=== PATIENT | female | born 1990 | race African-American/Black ===

== ENCOUNTER 2018-01-05 16:29 | Inpatient (IN) | payer OTHER ==
[2018-01-05 18:16] VITALS: BMI 20.5
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
[2018-01-05] MEDS ORDERED: ACETAMINOPHEN 325 MG TABLET (FP) PO PRN (20:41)
[2018-01-05] MEDS ORDERED: P-EPHED 60MG/TRIPROLIDI 2.5MG TABLET PO PRN (20:41)
[2018-01-05] MEDS ORDERED: MAGNESIUM HYDROX 2400MG/30ML ORAL SUSPENSION 30 ML CUP PO PRN (20:41)
[2018-01-05] MEDS ORDERED: chlordiazePOXIDE HCL 25 MG CAPSULE PO PRN (20:41)
[2018-01-05] MEDS ORDERED: MAGNESIUM CITRATE 300 ML BOTTLE PO PRN (20:41)
[2018-01-05] MEDS ORDERED: guaiFENesin/D-METHORPHAN HB 10 ML UNIT-DOSE CUPS PO PRN (20:41)
[2018-01-05] MEDS ORDERED: hydrOXYzine PAMOATE 50 MG CAPSULE (FP) PO PRN (20:41)
[2018-01-05] MEDS ORDERED: MAG HYDROX/AL HYDROX/SIMETH 30 ML UNIT-DOSE CUP PO PRN (20:41)
[2018-01-05] MEDS ORDERED: LOPERAMIDE HCL 2 MG CAPSULE PO PRN (20:41)
[2018-01-05] MEDS ORDERED: MENTHOL/PHENOL 1 EACH UD MM PRN (20:41)
[2018-01-05] MEDS ORDERED: IBUPROFEN 400 MG TABLET (FP) PO PRN (20:41)
[2018-01-05] MEDS: chlordiazePOXIDE HCL 25 MG CAPSULE PO SCH (22:57)
[2018-01-05] MEDS: THIAMINE HCL 100 MG TABLET (FP) PO SCH (22:57)
[2018-01-05] MEDS: MELATONIN 5 MG TABLETS PO PRN (22:58)
[2018-01-06 01:45] LABS: URINE APPEARANCE CLOUDY; URINE BILIRUBIN NEGATIVE (<2.0 mg/dL); URINE BLOOD NEGATIVE (NEGATIVE); URINE COLOR YELLOW; URINE GLUCOSE (UA) NEGATIVE (NEGATIVE); URINE KETONE NEGATIVE (NEGATIVE); URINE LEUK ESTERASE NEGATIVE (NEGATIVE); URINE NITRITE NEGATIVE (NEGATIVE); URINE PROTEIN NEGATIVE (NEGATIVE); URINE UROBILINOGEN NEGATIVE mg/dL (0.2-1.0)
[2018-01-06] MEDS: chlordiazePOXIDE HCL 25 MG CAPSULE PO SCH ×4 (05:53→22:29)
--- NOTE | 2018-01-06 10:06 | EKG ---
Test Reason : Blood Pressure : / mmHG Vent. Rate : 082 BPM Atrial Rate : 082 BPM P-R Int : 108 ms QRS Dur : 078 ms QT Int : 386 ms P-R-T Axes : 058 053 028 degrees QTc Int : 450 ms SINUS RHYTHM WITH SHORT NC OTHERWISE NORMAL ECG NO PREVIOUS ECGS AVAILABLE Confirmed by JAVI REID MD ([id number]) on 01/06/2018 10:06:00 AM Referred By: Confirmed By:JAVI REID MD
[2018-01-06] MEDS: PRENATAL VITAMINS W/ FOLIC ACID TABLET (FP) PO SCH (10:09)
[2018-01-06] MEDS: NICOTINE 14 MG/24 HOURS TOPICAL PATCH TD SCH (10:10)
[2018-01-06 10:21] LABS: HEMATOCRIT 34.9 % (32.4-45.2); HEMOGLOBIN 11.8 GM/dL (10.7-15.3); MCH 32.9 pg (25.7-33.7); MCHC 33.7 g/dl (32.0-36.0); MEAN CELL VOLUME 97.6 fl (80-96); MEAN PLT VOLUME 8.1 fl (7.5-11.1); PLATELET COUNT 304 K/MM3 (134-434); RBC 3.57 M/mm3 (3.60-5.2); WHITE BLOOD COUNT 6.5 K/mm3 (4.0-10.0)
[2018-01-06 10:32] LABS: CHLORIDE 107 mmol/L (98-107); SODIUM 142 mmol/L (136-145)
--- NOTE | 2018-01-06 10:32 | PN ---
S CIWA - CIWA Score Nausea/Vomitin Muscle Tremors: 2 Anxiety: 2 Agitation: 2 Paroxysmal Sweats: 3 Orientation: 0-Oriented Tacttile Disturbances: 1-Very Mild Itch/Numbness Auditory Disturbances: 0-None Visual Disturbances: 0-None Headache: 0-None Present CIWA-Ar Total Score: 12 S Progress Note (SOAP) Subjective: interrupted sleep, sweats Objective: 01/06/18 10:30 Vital Signs Temperature 97.5 F L 01/06/18 06:00 Pulse Rate 72 01/06/18 06:00 Respiratory Rate 16 01/06/18 06:00 Blood Pressure 106/75 01/06/18 06:00 O2 Sat by Pulse Oximetry (%) Laboratory Tests 01/06/18 01/06/18 00:34 08:00 WBC 6.5 RBC 3.57 L Hgb 11.8 Hct 34.9 MCV 97.6 H MCH 32.9 MCHC 33.7 RDW 13.0 Plt Count 304 MPV 8.1 Urine Color Yellow Urine Appearance Cloudy Urine pH 8.0 Ur Specific [place] 1.019 Urine Protein Negative Urine Glucose (UA) Negative Urine Ketones Negative Urine Blood Negative Urine Nitrite Negative Urine Bilirubin Negative Urine Urobilinogen Negative Ur Leukocyte Esterase Negative pt aox3 in nad ambulating well, Assessment: 01/06/18 10:31 withdrawal sx;s Plan: cont. detox increase fluids
[2018-01-06 10:45] LABS: ALBUMIN 2.8 g/dl (3.4-5.0); ALK PHOS 64 U/L (45-117); ANION GAP 8 (8-16); BILIRUBIN,TOTAL 0.2 mg/dL (0.2-1.0); BLOOD UREA NITROGEN 13 mg/dL (7-18); CALCIUM 8.3 mg/dL (8.5-10.1); CO2 27 mmol/L (21-32); CREATININE 0.7 mg/dL (0.55-1.02); GLUCOSE,RANDOM 94 mg/dL (74-106); SGOT/AST 16 U/L (15-37); SGPT/ALT 15 U/L (12-78); TOT PROT 5.7 g/dl (6.4-8.2)
[2018-01-06] MEDS: NICOTINE POLACRILEX 2 MG GUM BUC PRN ×2 (13:16→18:38)
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
[2018-01-06] MEDS: THIAMINE HCL 100 MG TABLET (FP) PO SCH (22:28)
[2018-01-06] MEDS: TOLNAFTATE 1% CREAM 15 GM TUBE TP SCH (22:28)
[2018-01-06] MEDS: MIRTAZAPINE 15 MG TABLET (FP) PO SCH (22:29)
[2018-01-06] MEDS: MELATONIN 5 MG TABLETS PO PRN (22:30)
[2018-01-07] MEDS: chlordiazePOXIDE HCL 25 MG CAPSULE PO SCH ×3 (06:10→17:35)
[2018-01-07] MEDS: PRENATAL VITAMINS W/ FOLIC ACID TABLET (FP) PO SCH (10:58)
[2018-01-07] MEDS: NICOTINE 14 MG/24 HOURS TOPICAL PATCH TD SCH (10:59)
[2018-01-07] MEDS: TOLNAFTATE 1% CREAM 15 GM TUBE TP SCH ×2 (10:59→22:16)
--- NOTE | 2018-01-07 15:24 | PN ---
S CIWA - CIWA Score Nausea/Vomitin Muscle Tremors: 3 Anxiety: 2 Agitation: 2 Paroxysmal Sweats: 1-Minimal Palms Moist Orientation: 0-Oriented Tacttile Disturbances: 1-Very Mild Itch/Numbness Auditory Disturbances: 1-Very Mild Visual Disturbances: 0-None Headache: 2-Mild CIWA-Ar Total Score: 15 S Progress Note (SOAP) Subjective: ALERT,IRRITABLE,ANXIOUS,INTERRUPTED SLEEP,TREMOR Objective: 01/07/18 15:22 Vital Signs Temperature 97.2 F L 01/07/18 15:16 Pulse Rate 98 H 01/07/18 15:16 Respiratory Rate 20 01/07/18 15:16 Blood Pressure 129/73 01/07/18 15:16 O2 Sat by Pulse Oximetry (%) Laboratory Last Values WBC 6.5 K/mm3 (4.0-10.0) 01/06/18 08:00 RBC 3.57 M/mm3 (3.60-5.2) L 01/06/18 08:00 Hgb 11.8 GM/dL (10.7-15.3) 01/06/18 08:00 Hct 34.9 % (32.4-45.2) 01/06/18 08:00 MCV 97.6 fl (80-96) H 01/06/18 08:00 MCH 32.9 pg (25.7-33.7) 01/06/18 08:00 MCHC 33.7 g/dl (32.0-36.0) 01/06/18 08:00 RDW 13.0 % (11.6-15.6) 01/06/18 08:00 Plt Count 304 K/MM3 (134-434) 01/06/18 08:00 MPV 8.1 fl (7.5-11.1) 01/06/18 08:00 Sodium 142 mmol/L (136-145) 01/06/18 08:00 Potassium 4.0 mmol/L (3.5-5.1) 01/06/18 08:00 Chloride 107 mmol/L (98-107) 01/06/18 08:00 Carbon Dioxide 27 mmol/L (21-32) 01/06/18 08:00 Anion Gap 8 (8-16) 01/06/18 08:00 BUN 13 mg/dL (7-18) 01/06/18 08:00 Creatinine 0.7 mg/dL (0.55-1.02) 01/06/18 08:00 Creat Clearance w eGFR > 60 (>60) 01/06/18 08:00 Random Glucose 94 mg/dL (74-106) 01/06/18 08:00 Calcium 8.3 mg/dL (8.5-10.1) L 01/06/18 08:00 Total Bilirubin 0.2 mg/dL (0.2-1.0) 01/06/18 08:00 AST 16 U/L (15-37) 01/06/18 08:00 ALT 15 U/L (12-78) 01/06/18 08:00 Alkaline Phosphatase 64 U/L (45-117) 01/06/18 08:00 Total Protein 5.7 g/dl (6.4-8.2) L 01/06/18 08:00 Albumin 2.8 g/dl (3.4-5.0) L 01/06/18 08:00 Urine Color Yellow 01/06/18 00:34 Urine Appearance Cloudy 01/06/18 00:34 Urine pH 8.0 (5.0-8.0) 01/06/18 00:34 Ur Specific [place] 1.019 (1.001-1.035) 01/06/18 00:34 Urine Protein Negative (NEGATIVE) 01/06/18 00:34 Urine Glucose (UA) Negative (NEGATIVE) 01/06/18 00:34 Urine Ketones Negative (NEGATIVE) 01/06/18 00:34 Urine Blood Negative (NEGATIVE) 01/06/18 00:34 Urine Nitrite Negative (NEGATIVE) 01/06/18 00:34 Urine Bilirubin Negative (<2.0 mg/dL) 01/06/18 00:34 Urine Urobilinogen Negative mg/dL (0.2-1.0) 01/06/18 00:34 Ur Leukocyte Esterase Negative (NEGATIVE) 01/06/18 00:34 RPR Titer Nonreactive (NONREACTIVE) 01/06/18 08:00 Assessment: 01/07/18 15:23 WITHDRAWAL SYMPTOM Plan: CONTINUE DETOX
[2018-01-07] MEDS: NICOTINE POLACRILEX 2 MG GUM BUC PRN ×2 (17:35→22:17)
[2018-01-07] MEDS: chlordiazePOXIDE 5 MG CAPSULE PO SCH (22:17)
[2018-01-07] MEDS: MELATONIN 5 MG TABLETS PO PRN (22:17)
[2018-01-07] MEDS: MIRTAZAPINE 15 MG TABLET (FP) PO SCH (22:17)
[2018-01-07] MEDS: THIAMINE HCL 100 MG TABLET (FP) PO SCH (22:17)
[2018-01-08] MEDS: chlordiazePOXIDE 5 MG CAPSULE PO SCH ×3 (06:04→17:11)
[2018-01-08] MEDS: NICOTINE POLACRILEX 2 MG GUM BUC PRN ×3 (06:13→14:12)
[2018-01-08] MEDS: PRENATAL VITAMINS W/ FOLIC ACID TABLET (FP) PO SCH (10:09)
[2018-01-08] MEDS: TOLNAFTATE 1% CREAM 15 GM TUBE TP SCH (10:09)
[2018-01-08] MEDS: NICOTINE 14 MG/24 HOURS TOPICAL PATCH TD SCH (10:09)
--- NOTE | 2018-01-08 10:22 | PN ---
BHS Progress Note (SOAP) Subjective: feeling better no tremor less sweat tolerated food and fluid well Objective: 01/08/18 10:21 Vital Signs Temperature 97.7 F 01/08/18 07:37 Pulse Rate 67 01/08/18 07:37 Respiratory Rate 18 01/08/18 07:37 Blood Pressure 119/54 01/08/18 07:37 O2 Sat by Pulse Oximetry (%) Laboratory Last Values WBC 6.5 K/mm3 (4.0-10.0) 01/06/18 08:00 RBC 3.57 M/mm3 (3.60-5.2) L 01/06/18 08:00 Hgb 11.8 GM/dL (10.7-15.3) 01/06/18 08:00 Hct 34.9 % (32.4-45.2) 01/06/18 08:00 MCV 97.6 fl (80-96) H 01/06/18 08:00 MCH 32.9 pg (25.7-33.7) 01/06/18 08:00 MCHC 33.7 g/dl (32.0-36.0) 01/06/18 08:00 RDW 13.0 % (11.6-15.6) 01/06/18 08:00 Plt Count 304 K/MM3 (134-434) 01/06/18 08:00 MPV 8.1 fl (7.5-11.1) 01/06/18 08:00 Sodium 142 mmol/L (136-145) 01/06/18 08:00 Potassium 4.0 mmol/L (3.5-5.1) 01/06/18 08:00 Chloride 107 mmol/L (98-107) 01/06/18 08:00 Carbon Dioxide 27 mmol/L (21-32) 01/06/18 08:00 Anion Gap 8 (8-16) 01/06/18 08:00 BUN 13 mg/dL (7-18) 01/06/18 08:00 Creatinine 0.7 mg/dL (0.55-1.02) 01/06/18 08:00 Creat Clearance w eGFR > 60 (>60) 01/06/18 08:00 Random Glucose 94 mg/dL (74-106) 01/06/18 08:00 Calcium 8.3 mg/dL (8.5-10.1) L 01/06/18 08:00 Total Bilirubin 0.2 mg/dL (0.2-1.0) 01/06/18 08:00 AST 16 U/L (15-37) 01/06/18 08:00 ALT 15 U/L (12-78) 01/06/18 08:00 Alkaline Phosphatase 64 U/L (45-117) 01/06/18 08:00 Total Protein 5.7 g/dl (6.4-8.2) L 01/06/18 08:00 Albumin 2.8 g/dl (3.4-5.0) L 01/06/18 08:00 Urine Color Yellow 01/06/18 00:34 Urine Appearance Cloudy 01/06/18 00:34 Urine pH 8.0 (5.0-8.0) 01/06/18 00:34 Ur Specific [place] 1.019 (1.001-1.035) 01/06/18 00:34 Urine Protein Negative (NEGATIVE) 01/06/18 00:34 Urine Glucose (UA) Negative (NEGATIVE) 01/06/18 00:34 Urine Ketones Negative (NEGATIVE) 01/06/18 00:34 Urine Blood Negative (NEGATIVE) 01/06/18 00:34 Urine Nitrite Negative (NEGATIVE) 01/06/18 00:34 Urine Bilirubin Negative (<2.0 mg/dL) 01/06/18 00:34 Urine Urobilinogen Negative mg/dL (0.2-1.0) 01/06/18 00:34 Ur Leukocyte Esterase Negative (NEGATIVE) 01/06/18 00:34 RPR Titer Nonreactive (NONREACTIVE) 01/06/18 08:00 lab noted Assessment: 01/08/18 10:22 mild withdrawal sx Plan: medically supervised detox
[2018-01-08] MEDS: THIAMINE HCL 100 MG TABLET (FP) PO SCH (22:27)
[2018-01-08] MEDS: MELATONIN 5 MG TABLETS PO PRN (22:27)
[2018-01-08] MEDS: MIRTAZAPINE 15 MG TABLET (FP) PO SCH (22:27)
[2018-01-08] MEDS: chlordiazePOXIDE HCL 10 MG CAPSULE PO SCH (22:27)
[2018-01-09] MEDS: chlordiazePOXIDE HCL 10 MG CAPSULE PO SCH ×2 (05:27→11:58)
--- NOTE | 2018-01-09 08:41 | DS ---
[facility] Detox Discharge Summary Admission Date: 01/05/18 Discharge Date: 01/09/18 - History Present History: Alcohol Dependence, Sedative Dependence Additional Comments: patient is alert oriented x 3 completed alcohol and benzo detox regimen patient tolerated the regimen well denies withdrawal sx denies dee wants to go to [facility] as aftercare program patient aware of the complications of alcohol drinking and benzo misuse - Physical Exam Results Vital Signs: Vital Signs Temperature 98.1 F 01/09/18 06:00 Pulse Rate 77 01/09/18 06:00 Respiratory Rate 16 01/09/18 06:00 Blood Pressure 109/55 01/09/18 06:00 O2 Sat by Pulse Oximetry (%) Pertinent Admission Physical Exam Findings: withdrawal sx Vital Signs Temperature 98.1 F 01/09/18 06:00 Pulse Rate 77 01/09/18 06:00 Respiratory Rate 16 01/09/18 06:00 Blood Pressure 109/55 01/09/18 06:00 O2 Sat by Pulse Oximetry (%) Laboratory Last Values WBC 6.5 K/mm3 (4.0-10.0) 01/06/18 08:00 RBC 3.57 M/mm3 (3.60-5.2) L 01/06/18 08:00 Hgb 11.8 GM/dL (10.7-15.3) 01/06/18 08:00 Hct 34.9 % (32.4-45.2) 01/06/18 08:00 MCV 97.6 fl (80-96) H 01/06/18 08:00 MCH 32.9 pg (25.7-33.7) 01/06/18 08:00 MCHC 33.7 g/dl (32.0-36.0) 01/06/18 08:00 RDW 13.0 % (11.6-15.6) 01/06/18 08:00 Plt Count 304 K/MM3 (134-434) 01/06/18 08:00 MPV 8.1 fl (7.5-11.1) 01/06/18 08:00 Sodium 142 mmol/L (136-145) 01/06/18 08:00 Potassium 4.0 mmol/L (3.5-5.1) 01/06/18 08:00 Chloride 107 mmol/L (98-107) 01/06/18 08:00 Carbon Dioxide 27 mmol/L (21-32) 01/06/18 08:00 Anion Gap 8 (8-16) 01/06/18 08:00 BUN 13 mg/dL (7-18) 01/06/18 08:00 Creatinine 0.7 mg/dL (0.55-1.02) 01/06/18 08:00 Creat Clearance w eGFR > 60 (>60) 01/06/18 08:00 Random Glucose 94 mg/dL (74-106) 01/06/18 08:00 Calcium 8.3 mg/dL (8.5-10.1) L 01/06/18 08:00 Total Bilirubin 0.2 mg/dL (0.2-1.0) 01/06/18 08:00 AST 16 U/L (15-37) 01/06/18 08:00 ALT 15 U/L (12-78) 01/06/18 08:00 Alkaline Phosphatase 64 U/L (45-117) 01/06/18 08:00 Total Protein 5.7 g/dl (6.4-8.2) L 01/06/18 08:00 Albumin 2.8 g/dl (3.4-5.0) L 01/06/18 08:00 Urine Color Yellow 01/06/18 00:34 Urine Appearance Cloudy 01/06/18 00:34 Urine pH 8.0 (5.0-8.0) 01/06/18 00:34 Ur Specific [place] 1.019 (1.001-1.035) 01/06/18 00:34 Urine Protein Negative (NEGATIVE) 01/06/18 00:34 Urine Glucose (UA) Negative (NEGATIVE) 01/06/18 00:34 Urine Ketones Negative (NEGATIVE) 01/06/18 00:34 Urine Blood Negative (NEGATIVE) 01/06/18 00:34 Urine Nitrite Negative (NEGATIVE) 01/06/18 00:34 Urine Bilirubin Negative (<2.0 mg/dL) 01/06/18 00:34 Urine Urobilinogen Negative mg/dL (0.2-1.0) 01/06/18 00:34 Ur Leukocyte Esterase Negative (NEGATIVE) 01/06/18 00:34 RPR Titer Nonreactive (NONREACTIVE) 01/06/18 08:00 lab noted - Treatment Hospital Course: Detox Protocol Followed, Detoxed Safely, Responded well, Discharged Condition Good, Rehab Referral Accepted Patient has Accepted a Rehab Referral to: [facility] - Diagnosis (1) Alcohol dependence with uncomplicated withdrawal Current Visit: Yes Status: Acute - AMA Did Patient Leave Against Medical Advice: No
[2018-01-09 09:13] VITALS: BP 153/81; PULSE 96; TEMP 98.2
[2018-01-09] MEDS: NICOTINE 14 MG/24 HOURS TOPICAL PATCH TD SCH (11:58)
[2018-01-09] MEDS: PRENATAL VITAMINS W/ FOLIC ACID TABLET (FP) PO SCH (11:58)
[2018-01-09] MEDS: TOLNAFTATE 1% CREAM 15 GM TUBE TP SCH ×2 (11:59)
[2018-01-09] MEDS: NICOTINE POLACRILEX 2 MG GUM BUC PRN (12:01)
== END 2018-01-09 13:15 | disposition other institution (70) | DRG 774 ==
LOC: YASAS 16:29 → Y6N 21:26
PROVIDERS: ADMIT Internal Medicine; ATTEND Internal Medicine
PROC: HZ2ZZZZ Detoxification Services for Substance Abuse Treatment (ICD-10-PCS; principal; 2018-01-05)
DX: F13.230 Sedative, hypnotic or anxiolytic dependence with withdrawal, uncomplicated (principal); F10.230 Alcohol dependence with withdrawal, uncomplicated; F14.20 Cocaine dependence, uncomplicated; F17.210 Nicotine dependence, cigarettes, uncomplicated; F19.24 Other psychoactive substance dependence with psychoactive substance-induced mood disorder; F32.9 Major depressive disorder, single episode, unspecified; F43.10 Post-traumatic stress disorder, unspecified; F60.3 Borderline personality disorder; F41.9 Anxiety disorder, unspecified; K50.90 Crohn's disease, unspecified, without complications; G47.00 Insomnia, unspecified; G40.509 Epileptic seizures related to external causes, not intractable, without status epilepticus
CPT/HCPCS: 36415; 80053; 81003; 85027; 86593; 93005; 93010

== ENCOUNTER 2018-01-09 13:54 | Inpatient (IN) | payer OTHER ==
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
[2018-01-09] MEDS ORDERED: P-EPHED 60MG/TRIPROLIDI 2.5MG TABLET PO PRN (14:59)
[2018-01-09] MEDS ORDERED: MENTHOL/PHENOL 1 EACH UD MM PRN (14:59)
[2018-01-09] MEDS ORDERED: MAGNESIUM HYDROX 2400MG/30ML ORAL SUSPENSION 30 ML CUP PO PRN (14:59)
[2018-01-09] MEDS ORDERED: guaiFENesin/D-METHORPHAN HB 10 ML UNIT-DOSE CUPS PO PRN (14:59)
[2018-01-09] MEDS ORDERED: IBUPROFEN 400 MG TABLET (FP) PO PRN (14:59)
[2018-01-09] MEDS ORDERED: MAG HYDROX/AL HYDROX/SIMETH 30 ML UNIT-DOSE CUP PO PRN (14:59)
[2018-01-09] MEDS ORDERED: MAGNESIUM CITRATE 300 ML BOTTLE PO PRN (14:59)
--- NOTE | 2018-01-09 15:02 | HP ---
[facility] Rehab Assess/Revision - Admission History Admitted to Rehab from: [facility] Date of Admission to Rehab: 01/09/2018 - Findings Detox History & Physical reviewed: Yes Concur with findings: Yes
[2018-01-09] MEDS: hydrOXYzine PAMOATE 50 MG CAPSULE (FP) PO PRN ×2 (17:07→21:36)
[2018-01-09] MEDS: risperiDONE 2 MG TABLET PO SCH (21:36)
[2018-01-09] MEDS: MIRTAZAPINE 30 MG TABLET (FP) PO SCH (21:36)
[2018-01-09] MEDS: TOLNAFTATE 1% CREAM 15 GM TUBE TP SCH (21:36)
[2018-01-09] MEDS: THIAMINE HCL 100 MG TABLET (FP) PO SCH (21:36)
[2018-01-09] MEDS: LOPERAMIDE HCL 2 MG CAPSULE PO PRN (21:52)
[2018-01-09] MEDS ORDERED: MELATONIN 5 MG TABLETS PO PRN (22:00)
[2018-01-10] MEDS: LOPERAMIDE HCL 2 MG CAPSULE PO PRN (06:36)
[2018-01-10] MEDS: PRENATAL VITAMINS W/ FOLIC ACID TABLET (FP) PO SCH (10:40)
[2018-01-10] MEDS: hydrOXYzine PAMOATE 50 MG CAPSULE (FP) PO PRN ×2 (10:41→17:59)
[2018-01-10] MEDS: TOLNAFTATE 1% CREAM 15 GM TUBE TP SCH ×2 (10:41→21:26)
--- NOTE | 2018-01-10 13:03 | PN ---
[facility] Progress Note Note: Patient reports currently smoker uses 1/2 pack per day, requested nicotine gum and patch. Diarrhea with cramps, painful hemorrhoids, since yesterday unrelieved with immodium. Denies any melena, or blood in the stool. Last Vital Signs Temp Pulse Resp BP Pulse Ox 97.7 F 84 16 103/71 01/10/18 07:17 01/10/18 07:17 01/10/18 07:17 01/10/18 07:17 Labs review Assessment : Patient AO x 3, no apparent distress Lungs clear, no adventitious breath normal HR and Rythm BS x 4 , non- tender non-distended Plan: Nicotine gum and patch Continue dietary recommendation gluten free diet increase fluids hydrocortisone cream RI as needed Lomotil PRN continue to monitor
[2018-01-10] MEDS: DIPHENOXYLATE 2.5/ATROPINE.025 1 COMBO TABLET PO PRN (15:48)
[2018-01-10] MEDS: NICOTINE POLACRILEX 2 MG GUM BUC PRN (15:49)
[2018-01-10] MEDS ORDERED: PT OWN MED DRAWER 7, Y5N ONE (20:06)
[2018-01-10] MEDS: risperiDONE 2 MG TABLET PO SCH (21:26)
[2018-01-10] MEDS: THIAMINE HCL 100 MG TABLET (FP) PO SCH (21:26)
[2018-01-10] MEDS: MIRTAZAPINE 30 MG TABLET (FP) PO SCH (21:26)
[2018-01-10] MEDS: HYDROCORTISONE 2.5% TOPICAL CREAM 30 GM TUBE PR SCH (21:27)
[2018-01-11] MEDS: NICOTINE POLACRILEX 2 MG GUM BUC PRN ×4 (06:46→16:47)
[2018-01-11] MEDS: DIPHENOXYLATE 2.5/ATROPINE.025 1 COMBO TABLET PO PRN (08:51)
[2018-01-11] MEDS: hydrOXYzine PAMOATE 50 MG CAPSULE (FP) PO PRN ×3 (08:51→18:47)
[2018-01-11] MEDS ORDERED: PT OWN MED DRAWER 7, Y5N ONE (09:07)
[2018-01-11] MEDS: NICOTINE 14 MG/24 HOURS TOPICAL PATCH TD SCH (10:31)
[2018-01-11] MEDS: TOLNAFTATE 1% CREAM 15 GM TUBE TP SCH ×2 (10:31→21:51)
[2018-01-11] MEDS: PRENATAL VITAMINS W/ FOLIC ACID TABLET (FP) PO SCH (10:31)
[2018-01-11] MEDS: LOPERAMIDE HCL 2 MG CAPSULE PO PRN (17:27)
[2018-01-11] MEDS: risperiDONE 2 MG TABLET PO SCH (21:50)
[2018-01-11] MEDS: THIAMINE HCL 100 MG TABLET (FP) PO SCH (21:50)
[2018-01-11] MEDS: MIRTAZAPINE 30 MG TABLET (FP) PO SCH (21:50)
[2018-01-11] MEDS: HYDROCORTISONE 2.5% TOPICAL CREAM 30 GM TUBE PR SCH (21:52)
[2018-01-12] MEDS: hydrOXYzine PAMOATE 50 MG CAPSULE (FP) PO PRN ×3 (07:47→17:45)
[2018-01-12] MEDS ORDERED: PT OWN MED DRAWER 7, Y5N ONE ×2 (08:54→19:40)
[2018-01-12] MEDS: PRENATAL VITAMINS W/ FOLIC ACID TABLET (FP) PO SCH (10:15)
[2018-01-12] MEDS: NICOTINE 14 MG/24 HOURS TOPICAL PATCH TD SCH (10:16)
[2018-01-12] MEDS: NICOTINE POLACRILEX 2 MG GUM BUC PRN ×4 (10:17→17:43)
[2018-01-12] MEDS: TOLNAFTATE 1% CREAM 15 GM TUBE TP SCH ×2 (10:18→21:36)
[2018-01-12] MEDS: LOPERAMIDE HCL 2 MG CAPSULE PO PRN (16:54)
[2018-01-12] MEDS: THIAMINE HCL 100 MG TABLET (FP) PO SCH (21:35)
[2018-01-12] MEDS: MIRTAZAPINE 30 MG TABLET (FP) PO SCH (21:35)
[2018-01-12] MEDS: risperiDONE 2 MG TABLET PO SCH (21:35)
[2018-01-12] MEDS: HYDROCORTISONE 2.5% TOPICAL CREAM 30 GM TUBE PR SCH (21:36)
[2018-01-13] MEDS ORDERED: DIPHENOXYLATE 2.5/ATROPINE.025 1 COMBO TABLET PO PRN (07:05)
[2018-01-13] MEDS: NICOTINE 14 MG/24 HOURS TOPICAL PATCH TD SCH (09:58)
[2018-01-13] MEDS: PRENATAL VITAMINS W/ FOLIC ACID TABLET (FP) PO SCH (09:58)
[2018-01-13] MEDS: TOLNAFTATE 1% CREAM 15 GM TUBE TP SCH ×2 (09:59→21:37)
[2018-01-13] MEDS: hydrOXYzine PAMOATE 50 MG CAPSULE (FP) PO PRN ×3 (10:26→19:11)
[2018-01-13] MEDS: LOPERAMIDE HCL 2 MG CAPSULE PO PRN (10:27)
[2018-01-13] MEDS: NICOTINE POLACRILEX 2 MG GUM BUC PRN ×3 (12:48→19:12)
[2018-01-13] MEDS: THIAMINE HCL 100 MG TABLET (FP) PO SCH (21:36)
[2018-01-13] MEDS: risperiDONE 2 MG TABLET PO SCH (21:37)
[2018-01-13] MEDS: MIRTAZAPINE 30 MG TABLET (FP) PO SCH (21:37)
[2018-01-13] MEDS: HYDROCORTISONE 2.5% TOPICAL CREAM 30 GM TUBE PR SCH (21:38)
[2018-01-14] MEDS: NICOTINE POLACRILEX 2 MG GUM BUC PRN ×3 (07:41→22:43)
[2018-01-14] MEDS: hydrOXYzine PAMOATE 50 MG CAPSULE (FP) PO PRN (08:29)
[2018-01-14] MEDS ORDERED: PT OWN MED DRAWER 7, Y5N ONE (09:04)
[2018-01-14] MEDS: NICOTINE 14 MG/24 HOURS TOPICAL PATCH TD SCH (10:02)
[2018-01-14] MEDS: PRENATAL VITAMINS W/ FOLIC ACID TABLET (FP) PO SCH (10:03)
[2018-01-14] MEDS: ACETAMINOPHEN 325 MG TABLET (FP) PO PRN (10:04)
[2018-01-14] MEDS: TOLNAFTATE 1% CREAM 15 GM TUBE TP SCH ×2 (10:07→21:37)
[2018-01-14] MEDS: THIAMINE HCL 100 MG TABLET (FP) PO SCH (21:35)
[2018-01-14] MEDS: risperiDONE 2 MG TABLET PO SCH (21:36)
[2018-01-14] MEDS: MIRTAZAPINE 30 MG TABLET (FP) PO SCH (21:36)
[2018-01-14] MEDS: HYDROCORTISONE 2.5% TOPICAL CREAM 30 GM TUBE PR SCH (21:37)
[2018-01-15] MEDS: PRENATAL VITAMINS W/ FOLIC ACID TABLET (FP) PO SCH (09:45)
[2018-01-15] MEDS: NICOTINE 14 MG/24 HOURS TOPICAL PATCH TD SCH (09:45)
[2018-01-15] MEDS: TOLNAFTATE 1% CREAM 15 GM TUBE TP SCH ×2 (09:46→21:37)
[2018-01-15] MEDS: NICOTINE POLACRILEX 2 MG GUM BUC PRN ×2 (10:45→15:10)
[2018-01-15] MEDS: THIAMINE HCL 100 MG TABLET (FP) PO SCH (21:35)
[2018-01-15] MEDS: MIRTAZAPINE 30 MG TABLET (FP) PO SCH (21:35)
[2018-01-15] MEDS: HYDROCORTISONE 2.5% TOPICAL CREAM 30 GM TUBE PR SCH (21:36)
[2018-01-15] MEDS: risperiDONE 2 MG TABLET PO SCH (21:36)
[2018-01-16] MEDS ORDERED: PT OWN MED DRAWER 7, Y5N ONE (08:30)
[2018-01-16] MEDS: TOLNAFTATE 1% CREAM 15 GM TUBE TP SCH ×2 (10:06→21:01)
[2018-01-16] MEDS: NICOTINE 14 MG/24 HOURS TOPICAL PATCH TD SCH (10:06)
[2018-01-16] MEDS: PRENATAL VITAMINS W/ FOLIC ACID TABLET (FP) PO SCH (10:06)
[2018-01-16] MEDS: NICOTINE POLACRILEX 2 MG GUM BUC PRN ×2 (10:08→16:18)
--- NOTE | 2018-01-16 16:39 | PN ---
[facility] Progress Note Note: Vital Signs Period Temp Pulse Resp BP Sys/Yi Pulse Ox Last 24 Hr 98.0 F 77 16-18 107/72 Patient c/o of back pain Continue to ambulate Lidocaine Patch Continue to monitor
[2018-01-16] MEDS: risperiDONE 2 MG TABLET PO SCH (21:00)
[2018-01-16] MEDS: MIRTAZAPINE 30 MG TABLET (FP) PO SCH (21:00)
[2018-01-16] MEDS: THIAMINE HCL 100 MG TABLET (FP) PO SCH (21:00)
[2018-01-16] MEDS: HYDROCORTISONE 2.5% TOPICAL CREAM 30 GM TUBE PR SCH (21:01)
[2018-01-17] MEDS: PRENATAL VITAMINS W/ FOLIC ACID TABLET (FP) PO SCH (10:28)
[2018-01-17] MEDS: NICOTINE 14 MG/24 HOURS TOPICAL PATCH TD SCH (10:29)
[2018-01-17] MEDS: LIDOCAINE 5% TOPICAL PATCH TP SCH (10:29)
[2018-01-17] MEDS: hydrOXYzine PAMOATE 50 MG CAPSULE (FP) PO PRN (10:31)
[2018-01-17] MEDS: TOLNAFTATE 1% CREAM 15 GM TUBE TP SCH ×2 (11:03→21:47)
[2018-01-17] MEDS: THIAMINE HCL 100 MG TABLET (FP) PO SCH (21:47)
[2018-01-17] MEDS: risperiDONE 2 MG TABLET PO SCH (21:47)
[2018-01-17] MEDS: HYDROCORTISONE 2.5% TOPICAL CREAM 30 GM TUBE PR SCH (21:47)
[2018-01-17] MEDS: LIDOCAINE PATCH REMOVAL MC SCH (21:47)
[2018-01-17] MEDS: MIRTAZAPINE 30 MG TABLET (FP) PO SCH (21:47)
[2018-01-18] MEDS: TOLNAFTATE 1% CREAM 15 GM TUBE TP SCH ×2 (10:32→21:42)
[2018-01-18] MEDS: PRENATAL VITAMINS W/ FOLIC ACID TABLET (FP) PO SCH (10:32)
[2018-01-18] MEDS: NICOTINE 14 MG/24 HOURS TOPICAL PATCH TD SCH (10:33)
[2018-01-18] MEDS: LIDOCAINE 5% TOPICAL PATCH TP SCH (10:33)
[2018-01-18] MEDS: ACETAMINOPHEN 325 MG TABLET (FP) PO PRN (10:34)
[2018-01-18] MEDS: hydrOXYzine PAMOATE 50 MG CAPSULE (FP) PO PRN (14:45)
[2018-01-18] MEDS: NICOTINE POLACRILEX 2 MG GUM BUC PRN (14:46)
[2018-01-18] MEDS: THIAMINE HCL 100 MG TABLET (FP) PO SCH (21:41)
[2018-01-18] MEDS: MIRTAZAPINE 30 MG TABLET (FP) PO SCH (21:41)
[2018-01-18] MEDS: risperiDONE 2 MG TABLET PO SCH (21:41)
[2018-01-18] MEDS: LIDOCAINE PATCH REMOVAL MC SCH (21:42)
[2018-01-18] MEDS: HYDROCORTISONE 2.5% TOPICAL CREAM 30 GM TUBE PR SCH (21:42)
[2018-01-19] MEDS ORDERED: PT OWN MED DRAWER 7, Y5N ONE (08:37)
[2018-01-19] MEDS: PRENATAL VITAMINS W/ FOLIC ACID TABLET (FP) PO SCH (10:16)
[2018-01-19] MEDS: NICOTINE 14 MG/24 HOURS TOPICAL PATCH TD SCH (10:16)
[2018-01-19] MEDS: LIDOCAINE 5% TOPICAL PATCH TP SCH (10:16)
[2018-01-19] MEDS: TOLNAFTATE 1% CREAM 15 GM TUBE TP SCH ×2 (10:17→21:44)
[2018-01-19] MEDS: NICOTINE POLACRILEX 2 MG GUM BUC PRN (10:17)
[2018-01-19] MEDS: THIAMINE HCL 100 MG TABLET (FP) PO SCH (21:44)
[2018-01-19] MEDS: MIRTAZAPINE 30 MG TABLET (FP) PO SCH (21:44)
[2018-01-19] MEDS: risperiDONE 2 MG TABLET PO SCH (21:44)
[2018-01-19] MEDS: LIDOCAINE PATCH REMOVAL MC SCH (21:45)
[2018-01-19] MEDS: HYDROCORTISONE 2.5% TOPICAL CREAM 30 GM TUBE PR SCH (21:45)
[2018-01-20] MEDS ORDERED: PT OWN MED DRAWER 7, Y5N ONE ×2 (09:26→11:11)
[2018-01-20] MEDS: NICOTINE 14 MG/24 HOURS TOPICAL PATCH TD SCH (11:05)
[2018-01-20] MEDS: PRENATAL VITAMINS W/ FOLIC ACID TABLET (FP) PO SCH (11:05)
[2018-01-20] MEDS: LIDOCAINE 5% TOPICAL PATCH TP SCH (11:05)
[2018-01-20] MEDS: TOLNAFTATE 1% CREAM 15 GM TUBE TP SCH ×2 (11:05→23:07)
[2018-01-20] MEDS: risperiDONE 2 MG TABLET PO SCH (21:45)
[2018-01-20] MEDS: MIRTAZAPINE 30 MG TABLET (FP) PO SCH (21:45)
[2018-01-20] MEDS: THIAMINE HCL 100 MG TABLET (FP) PO SCH (21:45)
[2018-01-20] MEDS: HYDROCORTISONE 2.5% TOPICAL CREAM 30 GM TUBE PR SCH (21:46)
[2018-01-20] MEDS: LIDOCAINE PATCH REMOVAL MC SCH (21:46)
[2018-01-21] MEDS: TOLNAFTATE 1% CREAM 15 GM TUBE TP SCH ×2 (10:23→21:51)
[2018-01-21] MEDS: PRENATAL VITAMINS W/ FOLIC ACID TABLET (FP) PO SCH (10:23)
[2018-01-21] MEDS: LIDOCAINE 5% TOPICAL PATCH TP SCH (10:23)
[2018-01-21] MEDS: NICOTINE 14 MG/24 HOURS TOPICAL PATCH TD SCH (10:25)
[2018-01-21] MEDS: NICOTINE POLACRILEX 2 MG GUM BUC PRN (16:55)
[2018-01-21] MEDS: THIAMINE HCL 100 MG TABLET (FP) PO SCH (21:50)
[2018-01-21] MEDS: risperiDONE 2 MG TABLET PO SCH (21:50)
[2018-01-21] MEDS: MIRTAZAPINE 30 MG TABLET (FP) PO SCH (21:50)
[2018-01-21] MEDS: LIDOCAINE PATCH REMOVAL MC SCH (21:51)
[2018-01-21] MEDS: HYDROCORTISONE 2.5% TOPICAL CREAM 30 GM TUBE PR SCH (21:51)
[2018-01-22] MEDS ORDERED: PT OWN MED DRAWER 7, Y5N ONE (08:33)
[2018-01-22] MEDS: TOLNAFTATE 1% CREAM 15 GM TUBE TP SCH ×2 (10:33→22:04)
[2018-01-22] MEDS: LIDOCAINE 5% TOPICAL PATCH TP SCH (10:33)
[2018-01-22] MEDS: NICOTINE 14 MG/24 HOURS TOPICAL PATCH TD SCH (10:33)
[2018-01-22] MEDS: PRENATAL VITAMINS W/ FOLIC ACID TABLET (FP) PO SCH (10:33)
[2018-01-22] MEDS: risperiDONE 2 MG TABLET PO SCH (22:04)
[2018-01-22] MEDS: LIDOCAINE PATCH REMOVAL MC SCH (22:04)
[2018-01-22] MEDS: MIRTAZAPINE 30 MG TABLET (FP) PO SCH (22:04)
[2018-01-22] MEDS: THIAMINE HCL 100 MG TABLET (FP) PO SCH (22:04)
[2018-01-22] MEDS: HYDROCORTISONE 2.5% TOPICAL CREAM 30 GM TUBE PR SCH (22:05)
[2018-01-23] MEDS ORDERED: PT OWN MED DRAWER 7, Y5N ONE (08:50)
[2018-01-23] MEDS: LIDOCAINE 5% TOPICAL PATCH TP SCH (10:52)
[2018-01-23] MEDS: NICOTINE 14 MG/24 HOURS TOPICAL PATCH TD SCH (10:52)
[2018-01-23] MEDS: PRENATAL VITAMINS W/ FOLIC ACID TABLET (FP) PO SCH (10:52)
[2018-01-23] MEDS: TOLNAFTATE 1% CREAM 15 GM TUBE TP SCH ×2 (10:53→21:33)
[2018-01-23] MEDS: NICOTINE POLACRILEX 2 MG GUM BUC PRN (18:49)
[2018-01-23] MEDS: THIAMINE HCL 100 MG TABLET (FP) PO SCH (21:33)
[2018-01-23] MEDS: MIRTAZAPINE 30 MG TABLET (FP) PO SCH (21:33)
[2018-01-23] MEDS: risperiDONE 2 MG TABLET PO SCH (21:33)
[2018-01-23] MEDS: LIDOCAINE PATCH REMOVAL MC SCH (21:33)
[2018-01-23] MEDS: HYDROCORTISONE 2.5% TOPICAL CREAM 30 GM TUBE PR SCH (21:34)
[2018-01-24] MEDS: LIDOCAINE 5% TOPICAL PATCH TP SCH (10:34)
[2018-01-24] MEDS: TOLNAFTATE 1% CREAM 15 GM TUBE TP SCH ×2 (10:35→21:37)
[2018-01-24] MEDS: NICOTINE 14 MG/24 HOURS TOPICAL PATCH TD SCH (10:35)
[2018-01-24] MEDS: PRENATAL VITAMINS W/ FOLIC ACID TABLET (FP) PO SCH (10:36)
[2018-01-24] MEDS: NICOTINE POLACRILEX 2 MG GUM BUC PRN ×2 (10:37→16:41)
[2018-01-24] MEDS ORDERED: COLLOIDAL OATMEAL 1 BAR EACH TP PRN (12:29)
[2018-01-24] MEDS: HYDROCORTISONE 2.5% TOPICAL CREAM 30 GM TUBE PR SCH (21:36)
[2018-01-24] MEDS: THIAMINE HCL 100 MG TABLET (FP) PO SCH (21:36)
[2018-01-24] MEDS: LIDOCAINE PATCH REMOVAL MC SCH (21:36)
[2018-01-24] MEDS: risperiDONE 2 MG TABLET PO SCH (21:36)
[2018-01-24] MEDS: MIRTAZAPINE 30 MG TABLET (FP) PO SCH (21:36)
[2018-01-25] MEDS: LIDOCAINE 5% TOPICAL PATCH TP SCH (10:29)
[2018-01-25] MEDS: PRENATAL VITAMINS W/ FOLIC ACID TABLET (FP) PO SCH (10:30)
[2018-01-25] MEDS: TOLNAFTATE 1% CREAM 15 GM TUBE TP SCH ×2 (10:30→23:18)
[2018-01-25] MEDS: NICOTINE 14 MG/24 HOURS TOPICAL PATCH TD SCH (10:30)
[2018-01-25] MEDS: NICOTINE POLACRILEX 2 MG GUM BUC PRN (16:37)
[2018-01-25] MEDS: THIAMINE HCL 100 MG TABLET (FP) PO SCH (21:28)
[2018-01-25] MEDS: risperiDONE 2 MG TABLET PO SCH (21:28)
[2018-01-25] MEDS: MIRTAZAPINE 30 MG TABLET (FP) PO SCH (21:28)
[2018-01-25] MEDS: HYDROCORTISONE 2.5% TOPICAL CREAM 30 GM TUBE PR SCH (23:18)
[2018-01-25] MEDS: LIDOCAINE PATCH REMOVAL MC SCH (23:18)
[2018-01-26 07:21] VITALS: BP 106/74; PULSE 78; TEMP 97.2
[2018-01-26] MEDS: PRENATAL VITAMINS W/ FOLIC ACID TABLET (FP) PO SCH (10:36)
[2018-01-26] MEDS: NICOTINE 14 MG/24 HOURS TOPICAL PATCH TD SCH (10:36)
[2018-01-26] MEDS: LIDOCAINE 5% TOPICAL PATCH TP SCH (10:36)
[2018-01-26] MEDS: TOLNAFTATE 1% CREAM 15 GM TUBE TP SCH (10:37)
--- NOTE | 2018-01-26 11:50 | PN ---
Psychiatric Progress Note Vital Signs: Vital Signs Period Temp Pulse Resp BP Sys/Yi Pulse Ox Last 24 Hr 97.2 F 78 18-18 106/74 Date of Session: 01/26/18 Chief Complaint:: dischrge order HPI: Patient coplited rehabilitatiuon protocol, scheduled for discharged today Current Medications: Active Medications Generic Name Dose Route Start Last Admin Trade Name Freq PRN Reason Stop Dose Admin Acetaminophen 650 mg 01/09/18 14:59 01/18/18 10:34 Tylenol - PO 650 mg Q4H PRN Administration FEVER Al Hydroxide/Mg Hydroxide 30 ml 01/09/18 14:59 Mylanta Oral Suspension - PO Q6H PRN DYSPEPSIA Colloidal Oatmeal 1 applic 01/24/18 12:29 01/24/18 16:40 Aveeno Soap - TP 1 bar DAILY PRN Administration HYGEINE Eucalyptus/Menthol/Phenol/Sorbitol 1 each 01/09/18 14:59 Cepastat Lozenge - MM Q4H PRN SORE THROAT Guaifenesin 10 ml 01/09/18 14:59 Robitussin Dm - PO Q6H PRN COUGH Hydrocortisone 1 applic 01/10/18 22:00 01/25/18 23:18 Anusol 2.5% Hc Cream - CO Not Given HS CATARINO Hydroxyzine Pamoate 50 mg 01/09/18 15:03 01/18/18 14:45 Vistaril - PO 50 mg Q4H PRN Administration ANXIETY Ibuprofen 400 mg 01/09/18 14:59 Motrin - PO Q6H PRN Pain Level 4-6 Lidocaine 1 patch 01/17/18 10:00 01/26/18 10:36 Lidoderm Patch - TP Not Given DAILY [facility] Loperamide HCl 4 mg 01/09/18 14:59 01/13/18 10:27 Imodium - PO 4 mg Q6H PRN Administration DIARRHEA Magnesium Citrate 300 ml 01/09/18 14:59 Citroma - PO Q48H PRN CONSTIPATION Magnesium Hydroxide 30 ml 01/09/18 14:59 Milk Of Magnesia - PO DAILY PRN CONSTIPATION Melatonin 5 mg 01/09/18 22:00 Melatonin PO HS PRN INSOMNIA Mirtazapine 30 mg 01/09/18 22:00 01/25/18 21:28 Remeron - PO 30 mg HS CATARINO Administration Miscellaneous 1 each 01/17/18 22:00 01/25/18 23:18 Lidoderm Patch Removal MC Not Given DAILY@2200 [facility] Nicotine 14 mg 01/11/18 10:00 01/26/18 10:36 Nicoderm Patch - TD Not Given DAILY [facility] Nicotine Polacrilex 2 mg 01/10/18 12:58 01/25/18 16:37 Nicorette Gum - BUC 2 mg Q2H PRN Administration NICOTINE REPLACEMENT RX Multivit/Folic Acid/Iron 1 tab 01/10/18 10:00 01/26/18 10:36 Vitamins (Sjr) - PO Not Given DAILY [facility] Pseudoephedrine/Triprolidine 1 combo 01/09/18 14:59 Actifed - PO TID PRN NASAL CONGESTION Risperidone 2 mg 01/09/18 22:00 01/25/18 21:28 Risperdal - PO 2 mg HS CATARINO Administration Thiamine HCl 100 mg 01/09/18 22:00 01/25/18 21:28 Vitamin B1 - PO 100 mg HS CATARINO Administration Tolnaftate 1 applic 01/09/18 22:00 01/26/18 10:37 Tinactin 1% Cream - TP Not Given BID [facility] Provider note:: Patient evaluated, chart revewedm current meduications one month supply sent to [facility]. Mental Status Exam - Mental Status Exam Alert and Oriented to: Time, Place, Person Cognitive Function: Fair Patient Appearance: Well Groomed Mood: Euthymic Affect: Mood Congruent Patient Behavior: Cooperative Speech Pattern: Appropriate Voice Loudness: Mildly Soft/Quiet Thought Process: Goal Oriented Thought Disorder: Being Controlled Hallucinations: Denies Suicidal Ideation: Denies Homicidal Ideation: Denies Insight/Judgement: Fair Sleep: Fair Appetite: Fair Muscle strength/Tone: Normal Gait/Station: Normal Additional Comments: Discharge home Psychiatric Treatment Plan - Problem List (1) Alcohol dependence Current Visit: Yes (2) Anxiolytic dependence Current Visit: Yes (3) Borderline personality disorder Current Visit: Yes (4) Cocaine dependence Current Visit: Yes Qualifiers: Substance use status: with cocaine-induced sleep disorder Qualified Code(s) : 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 Dscharge home today on: Current medications: Risperdal 2mg po qhs. Remeron 30mg po qhs
== END 2018-01-26 12:15 | disposition home or self-care (01) | DRG 772 ==
LOC: YASAS 13:54 → Y3E 13:55
PROVIDERS: ADMIT Psychiatry & Neurology Psychiatry; ATTEND Psychiatry & Neurology Psychiatry
PROC: HZ42ZZZ Group Counseling for Substance Abuse Treatment, Cognitive-Behavioral (ICD-10-PCS; principal; 2018-01-09)
DX: F13.230 Sedative, hypnotic or anxiolytic dependence with withdrawal, uncomplicated (principal); F10.230 Alcohol dependence with withdrawal, uncomplicated; F14.20 Cocaine dependence, uncomplicated; F43.0 Acute stress reaction; F19.24 Other psychoactive substance dependence with psychoactive substance-induced mood disorder; K40.90 Unilateral inguinal hernia, without obstruction or gangrene, not specified as recurrent; Z91.018 Allergy to other foods